=== PATIENT | male | born 1950 | race African-American/Black ===

== ENCOUNTER 2018-11-20 06:53 | Emergency (ER) | payer OTHER ==
[2018-11-20 07:02] VITALS: BP 138/75; PULSE 90; RESP 16; TEMP 99.6
[2018-11-20] MEDS ORDERED: ACET/COD 300 MG/30 MG STARTER PACK 6 TAB BTL PO STA (07:19)
[2018-11-20] MEDS ORDERED: PENICILLIN VK 500MG STARTER 4 TAB BTL PO STA (07:19)
--- NOTE | 2018-11-20 07:20 | ED ---
General Adult HPI - General Chief complaint: Fever Stated complaint: Fever, Dental Pain Time Seen by Provider: 11/20/18 07:08 Source: patient, family, RN notes reviewed Mode of arrival: wheelchair Limitations: no limitations - History of Present Illness Initial comments: Patient is a pleasant 68-year-old male presenting to the emergency Department with complaints of dental pain and fever. Onset of symptoms was last night. No history of similar symptoms previously. Patient does complain of discomfort right upper teeth. Patient feels like a swollen however has not noticed any swelling. Patient feels like he has a fever. Patient feels somewhat achy all over. No difficulty swallowing. No difficulty in breathing. - Related Data Home Medications Medication Instructions Recorded Confirmed Aspirin EC [Ecotrin] 325 mg PO DAILY PRN 11/20/18 11/20/18 Lisinopril [Zestril] 10 mg PO DAILY 11/20/18 11/20/18 Previous Rx's Medication Instructions Recorded Penicillin V Potassium [Pen Vee K] 500 mg PO QID #40 tablet 11/20/18 Allergies Allergy/AdvReac Type Severity Reaction Status Date / Time No Known Allergies Allergy Verified 11/20/18 07:25 Review of Systems ROS Statement: Those systems with pertinent positive or pertinent negative responses have been documented in the HPI. ROS Other: All systems not noted in ROS Statement are negative. Constitutional: Reports: fever, chills Eyes: Denies: eye pain ENT: Reports: dental pain Respiratory: Denies: dyspnea Cardiovascular: Denies: chest pain Gastrointestinal: Denies: abdominal pain Neurological: Denies: headache Past Medical History Past Medical History: Hypertension History of Any Multi-Drug Resistant Organisms: None Reported Additional Past Surgical History / Comment(s): neck, nasal Past Psychological History: No Psychological Hx Reported Smoking Status: Former smoker Past Alcohol Use History: None Reported Past Drug Use History: None Reported General Exam Limitations: no limitations General appearance: alert, in no apparent distress Head exam: Present: normocephalic Eye exam: Present: normal appearance ENT exam: Present: other (Right upper posterior premolar with some decay and tenderness. No visualized abscess formation.) Neck exam: Present: normal inspection Respiratory exam: Present: normal lung sounds bilaterally Cardiovascular Exam: Present: regular rate, normal rhythm GI/Abdominal exam: Present: soft. Absent: tenderness Extremities exam: Present: normal inspection Neurological exam: Present: alert, CN II-XII intact Psychiatric exam: Present: normal affect, normal mood Skin exam: Present: normal color Course Vital Signs 11/20/18 06:59 Temperature 99.6 F Pulse Rate 90 Respiratory 16 Rate Blood Pressure 138/75 O2 Sat by Pulse 96 Oximetry Disposition Clinical Impression: Dental abscess Disposition: HOME SELF-CARE Condition: Stable Instructions (If sedation given, give patient instructions): Dental Abscess (ED) Additional Instructions: Please follow-up with primary care physician and dentist in the next couple of days for recheck. Return for uncontrolled fevers, swelling, difficulty breathing or difficulty swallowing, worsening symptoms or other concerns. [id number] Tylenol or Motrin as needed. Prescriptions: Penicillin V Potassium [Pen Vee K] 500 mg PO QID #40 tablet Is patient prescribed a controlled substance at d/c from ED?: No Referrals: Skyla Ray MD [Primary Care Provider] - 1-2 days Time of Disposition: 07:23
== END 2018-11-20 07:50 | disposition home or self-care (01) ==
LOC: EC 06:53
DX: K04.7 Periapical abscess without sinus (principal); K02.9 Dental caries, unspecified; I10 Essential (primary) hypertension; Z87.891 Personal history of nicotine dependence; Z79.899 Other long term (current) drug therapy
CPT/HCPCS: 99283

== ENCOUNTER 2020-06-03 06:06 | Day surgery (SDC) | payer OTHER, MEDICARE ==
[2020-05-29 15:01] VITALS: BMI 25.1
[~2020-06-03 06:06] MED LIST: ACETAMINOPHEN TAB 500 MG TAB PO PRN; DEXAMETHASONE SOD PHOSPHATE 4 MG/ML 1 ML VIAL IV ONE; HEPARIN SODIUM,PORCINE/PF 5,000 UNIT/0.5 ML SYRINGE SQ PRN; LIDOCAINE 1% (10MG/ML) FOR IV START INTRADERMA PRN; MIDAZOLAM 2 MG/2 ML VIAL IV PRN; ONDANSETRON 4 MG/2 ML VIAL IVP ONE
[2020-06-03] MEDS: LACTATED RINGERS 1,000 ML IV SCH ×2 (06:40→11:32)
[2020-06-03] MEDS ORDERED: HYDROmorphone 0.5 MG/0.5 ML SYRINGE IVP PRN (07:00)
[2020-06-03] MEDS ORDERED: fentaNYL (PF) 50 MCG/ML 2 ML AMP IVP PRN (07:00)
[2020-06-03] MEDS ORDERED: hydrALAZINE HCL 20 MG/ML 1 ML VIAL ONE (07:44)
[2020-06-03] MEDS ORDERED: PROPOFOL 10 MG/ML 20 ML VIAL IV ONE (07:44)
[2020-06-03] MEDS ORDERED: KETOROLAC 15 MG/ML 1 ML VIAL ONE (07:44)
[2020-06-03] MEDS ORDERED: LIDOCAINE 1% INJ 10MG/ML (20 ML MDV) ONE (07:44)
[2020-06-03] MEDS ORDERED: NEOSTIGMINE 1 MG/ML 10 ML VIAL ONE (07:44)
[2020-06-03] MEDS ORDERED: KETAMINE 10 MG/ML 20 ML VIAL ONE (07:44)
[2020-06-03] MEDS ORDERED: SUCCINYLCHOLINE CHLORIDE 100 MG/5 ML SYR IV ONE (07:44)
[2020-06-03] MEDS ORDERED: GLYCOPYRROLATE 0.2 MG/ML 2 ML VIAL ONE (07:44)
[2020-06-03] MEDS ORDERED: fentaNYL (PF) 50 MCG/ML 2 ML AMP ONE (07:44)
[2020-06-03] MEDS ORDERED: ROPIVACAINE 5 MG/ML 30 ML VIAL ONE (07:44)
[2020-06-03] MEDS ORDERED: ROCURONIUM 10 MG/ML (5 ML VIAL) IV ONE (07:44)
[2020-06-03] MEDS ORDERED: BUPIVACAINE (PF) 0.25% 30 ML VIAL SQ ONE ×2 (08:04→08:07)
--- NOTE | 2020-06-03 08:12 | P.ANPRN ---
Procedure Note - Anesthesia - Nerve Block Performed Bilateral Erector Spinae Single Time Out Performed: Yes Date of Procedure: 06/03/20 Procedure Start Time: :12 Procedure Stop Time: : Location of Patient: PreOp Indication: Acute Post-Operative Pain, Requested by Surgeon Sedation Type: Sedate with meaningful contact maintained Preparation: Sterile Prep, Sterile Dressing Position: Sitting Catheter: None Needle Types: On-Q Needle Gauge: 21 Ultrasound used to visualize needle placement: Yes Ultrasound used to observe medication spread: Yes Injectate: Other (see comment) (Ropivacaine 0.25% 25 ml per side) Blood Aspirated: No Pain Paresthesia on Injection Noted: No Resistance on Injection: Normal Image Stored and Saved: Yes Events: Uneventful and Well Tolerated
[2020-06-03] MEDS ORDERED: LACTATED RINGERS 1,000 ML IV ONE ×2 (08:25)
--- NOTE | 2020-06-03 09:04 | P.GSHP ---
History of Present Illness H&P Date: 06/03/20 Chief Complaint: Right angle hernia This a 61 male who presents today for laparoscopic robotic-assisted pair of right inguinal hernia. Patient developed a tender mass right groin. The hernia is incarcerated. Past Medical History Past Medical History: Hypertension Additional Past Medical History / Comment(s): right inguinal hernia History of Any Multi-Drug Resistant Organisms: None Reported Additional Past Surgical History / Comment(s): cervical fusion & disc surgery, deviated septum, cataracts Past Anesthesia/Blood Transfusion Reactions: No Reported Reaction Past Psychological History: No Psychological Hx Reported Smoking Status: Former smoker Past Alcohol Use History: Occasional Additional Past Alcohol Use History / Comment(s): quit smoking 10-12 years ago, smoked 1ppd Past Drug Use History: None Reported - Past Family History Mother Family Medical History: No Reported History Medications and Allergies Home Medications Medication Instructions Recorded Confirmed Type Atorvastin (Unknown Dose) 20 mg PO DAILY 05/29/20 History Ibuprofen [Motrin Ib] 200 mg PO DIRECTED PRN 05/29/20 05/29/20 History lisinopriL [Zestril] 5 mg PO DAILY 05/29/20 06/03/20 History Allergies Allergy/AdvReac Type Severity Reaction Status Date / Time codeine AdvReac Unknown Unknown Verified 06/03/20 06:19 Surgical - Exam Vital Signs Temp Pulse Resp BP Pulse Ox 98.1 F 53 L 16 180/75 97 06/03/20 06:29 06/03/20 06:29 06/03/20 06:29 06/03/20 06:29 06/03/20 06:29 - General well developed, well nourished, no distress - Eyes PERRL - ENT normal pinna - Neck no masses - Respiratory normal expansion - Cardiovascular Rhythm: regular - Abdomen Abdomen: soft, non tender Hernia: inguinal (Large right inguinal hernia) Assessment and Plan Assessment: Right inguinal hernia. We'll perform laparoscopic robotic-assisted repair.
--- NOTE | 2020-06-03 09:06 | P.OP ---
Date of Procedure: 06/03/20 Preoperative Diagnosis: Right inguinal hernia Postoperative Diagnosis: Bilateral hernia Procedure(s) Performed: Laparoscopic robotic repair of bilateral hernia Laparoscopic excision of cord lipoma left Anesthesia: BEULAH Surgeon: Cresencio Donato Estimated Blood Loss (ml): 5 Pathology: other (Left cord lipoma) Condition: stable Disposition: PACU Description of Procedure: The patient's placed on the operating table in the supine position. The patient received general anesthesia. The patient's abdomen was prepped and draped in usual sterile fashion. The skin was anesthetized 1% local Xylocaine at the incision sites. Using an 11 blade a skin incision was made at the umbilicus. The fascia was grasped with a Izaiah and then the peritoneal cavity was entered with the Veress needle. Position of the Veress needle was confirmed with a positive drop test. After adequate insufflation a 5 mm trocar was placed into the peritoneal cavity. The Laparoscope was placed the peritoneal cavity. And a robotic 8 mm trocar was placed in the right lateral position and then another 8 mm robotic trochars placed in the left lateral position. The original 5 mm trocar was exchanged for a 12 mm trocar. The patient was placed in reverse Trendelenburg and then the patient was docked to the robot. Next the peritoneum over top of the right inguinal hernia was incised and then using blunt and sharp dissection and electrocautery the hernia sac was dissected free from the floor of the inguinal canal. The hernia sac was completely reduced into the peritoneal cavity. And then using the Pro hardness tester mesh the hernia was repaired. The peritoneum was then sutured with 20V lock suture. Next the peritoneum over top of the left inguinal hernia was incised and then using blunt and sharp dissection and electrocautery the hernia sac was dissected free from the floor of the inguinal canal. The cord lipoma was dissected free and sent to pathology The hernia sac was completely reduced into the peritoneal cavity. And then using the Pro hardness tester mesh the hernia was repaired. The perit oneum was then sutured with 20V lock suture. The patient was then undocked the robot. The needle was withdrawn from the peritoneal cavity. The umbilical trocar site was closed with 0 Ethibond suture. The skin was closed interrupted 3-0 Monocryl suture. Dermabond dressing was applied. Patient was sent to recovery in stable condition.
[2020-06-03 09:12] VITALS: TEMP 97.3
[2020-06-03 09:18] VITALS: RESP 16
[2020-06-03 11:20] VITALS: BP 145/71; PULSE 78
== END 2020-06-03 12:38 | disposition home or self-care (01) ==
LOC: OR 06:06
PROVIDERS: ATTEND Surgery
DX: K40.20 Bilateral inguinal hernia, without obstruction or gangrene, not specified as recurrent (principal); D17.1 Benign lipomatous neoplasm of skin and subcutaneous tissue of trunk; I10 Essential (primary) hypertension; Z79.899 Other long term (current) drug therapy; Z87.891 Personal history of nicotine dependence; Z88.5 Allergy status to narcotic agent
CPT/HCPCS: 49650; S2900; 64999; 76942; 88304

== ENCOUNTER 2023-02-18 06:20 | Emergency (ER) | payer BC, MEDICARE ==
--- NOTE | 2023-02-18 07:03 | XR ---
EXAMINATION TYPE: XR chest 2V DATE OF EXAM: 02/18/2023 6:57 AM CLINICAL INDICATION:Male, 72 years old with history of cough; [facility] COMPARISON: None TECHNIQUE: XR chest 2V Frontal and lateral views of the chest. FINDINGS: Lungs/Pleura: Left lower lung airspace opacities. There is no evidence of pleural effusion, focal con solidation, or pneumothorax. Pulmonary vascularity: Unremarkable. Heart/mediastinum: Cardiomediastinal silhouette is unremarkable. Musculoskeletal: No acute osseous pathology. Other findings: None IMPRESSION: Left lower lung airspace opacities correlate for pneumonia versus atelectasis.
--- NOTE | 2023-02-18 07:28 | ED ---
General Adult HPI - General Chief complaint: Upper Respiratory Infection Stated complaint: HUGO Time Seen by Provider: 02/18/23 06:33 Source: patient, RN notes reviewed Mode of arrival: ambulatory Limitations: no limitations - History of Present Illness Initial comments: 72-year-old male with no significant past medical history presents the emergency department with a chief complaint of cough. Patient reports cough, congestion, headache, generalized body aches for the last 3 days. He is unsure of whether his sputum has a color to it. He does report feeling feverish at times. He does report chest tightness secondary to his cough and coughing fits. He admits that this feels similar to the last time he had pneumonia. - Related Data Home Medications Medication Instructions Recorded Confirmed Atorvastin (Unknown Dose) 20 mg PO DAILY 05/29/20 Ibuprofen [Motrin Ib] 200 mg PO DIRECTED PRN 05/29/20 05/29/20 lisinopriL [Zestril] 5 mg PO DAILY 05/29/20 06/03/20 Previous Rx's Medication Instructions Recorded Acetaminophen Tab [Tylenol] 650 mg PO Q6H #30 tab 06/03/20 Docusate [Colace] 100 mg PO BID #20 capsule 06/03/20 Ibuprofen [Motrin] 600 mg PO Q6HR PRN #40 tab 06/03/20 oxyCODONE HCL [OxyIR] 5 mg PO Q6H PRN 3 Days #10 tab 06/03/20 Azithromycin [Zithromax Z Pack] 0 tab PO DIRECTED #6 tab 02/18/23 Allergies Allergy/AdvReac Type Severity Reaction Status Date / Time codeine AdvReac Unknown Unknown Verified 02/18/23 06:24 Review of Systems ROS Statement: Those systems with pertinent positive or pertinent negative responses have been documented in the HPI. ROS Other: All systems not noted in ROS Statement are negative. Past Medical History Past Medical History: Hypertension, Pneumonia Additional Past Medical History / Comment(s): right inguinal hernia History of Any Multi-Drug Resistant Organisms: None Reported Past Surgical History: Appendectomy Additional Past Surgical History / Comment(s): cervical fusion & disc surgery, deviated septum, cataracts Past Anesthesia/Blood Transfusion Reactions: No Reported Reaction Past Psychological History: No Psychological Hx Reported Smoking Status: Former smoker Past Alcohol Use History: Occasional Past Drug Use History: None Reported - Past Family History Mother Family Medical History: No Reported History General Exam - General Exam Comments Initial Comments: General: Alert, in no acute distress Head: atraumatic normocephalic. Eyes PERRL, EOMI intact, mucous membranes moist Respiratory: Lungs clear to auscultation bilaterally Cardiovascular: Heart rate regular rate and rhythm Abdominal: Soft without guarding or rebound Extremities: Normal inspection with full range of motion and normal capillary refill Neuroogic: alert and oriented 3, CN II-XII intact, able to ambulate with steady gait Skin: warm dry and intact with normal color Limitations: no limitations Course Vital Signs 02/18/23 02/18/23 06:22 07:01 Temperature 98.6 F 98.5 F Pulse Rate 78 67 Respiratory 18 16 Rate Blood Pressure 149/69 134/69 O2 Sat by Pulse 96 96 Oximetry Medical Decision Making - Medical Decision Making Was pt. sent in by a medical professional or institution (, PA, BIOLOGY TEACHER, urgent care, hospital, or half-way...) When possible be specific @ -[No] Did you speak to anyone other than the patient for history (EMS, parent, family, police, friend...)? What history was obtained from this source @ -[No] Did you review nursing and triage notes (agree or disagree)? Why? @ -[I reviewed and agree with nursing and triage notes] Were old charts reviewed (outside hosp., previous admission, EMS record, old EKG, old radiological studies, urgent care reports/EKG's, half-way records)? Report findings @ -[No old charts were reviewed] Differential Diagnosis (chest pain, altered mental status, abdominal pain women, abdominal pain men, vaginal bleeding, weakness, fever, dyspnea, syncope, headache, dizziness, GI bleed, back pain, seizure, CVA, palpatations, mental health, musculoskeletal)? @ -[not applicable] EKG interpreted by me (3pts min.). @ -[As above] X-rays interpreted by me (1pt min.). @ -Chest x-ray with left lower lobe infiltrate to suggest pneumonia CT interpreted by me (1pt min.). @ -[None done] U/S interpreted by me (1pt. min.). @ -[None done] What testing was considered but not performed or refused? (CT, X-rays, U/S, labs)? Why? @ -[None] What meds were considered but not given or refused? Why? @ -[None] Did you discuss the management of the patient with other professionals (professionals i.e. , PA, BIOLOGY TEACHER, lab, RT, psych nurse, clinical social work aide, store facility technician, teacher, targeting acquisition officer, welfare case worker)? Give summary @ -[No] Was smoking cessation discussed for >3mins.? @ -[No] Was critical care preformed (if so, how long)? @ -[No] Were there social determinants of health that impacted care today? How? (Homelessness, low income, unemployed, alcoholism, drug addiction, transporta tion, low edu. Level, literacy, decrease access to med. care, shelter, rehab)? @ -[No] Was there de-escalation of care discussed even if they declined (Discuss DNR or withdrawal of care, Hospice)? DNR status @ -[No] What co-morbidities impacted this encounter? (DM, HTN, Smoking, COPD, CAD, Cancer, CVA, ARF, Chemo, Hep., AIDS, mental health diagnosis, sleep apnea, morbid obesity)? @ -[None] Was patient admitted / discharged? Hospital course, mention meds given and route, prescriptions, significant lab abnormalities, going to OR and other pertinent info. @ Discharged. This is a pleasant 72-year-old male who presents the emergency department with cough. Patient with a history and physical exam performed. Patient is afebrile. Vital signs are stable. Patient oxygen saturation 98% on room air. Patient's chest x-ray reveals left lower lobe pneumonia. She'll be provided azithromycin and prednisone. 6 return parameters were discussed. Discharged in stable condition. Case is discussed with Dr. johnson ED attending who agrees with plan of care Undiagnosed new problem with uncertain prognosis? @ -[No] Drug Therapy requiring intensive monitoring for toxicity (Heparin, Nitro, Insulin, Cardizem)? @ -[No] Were any procedures done? @ -[No] Diagnosis/symptom? @ -Pneumonia - Cough Acute, or Chronic, or Acute on Chronic? @ -Acute ] Uncomplicated (without systemic symptoms) or Complicated (systemic symptoms)? @ -Uncomplicated Side effects of treatment? @ -[No] Exacerbation, Progression, or Severe Exacerbation? @ -[No] Poses a threat to life or bodily function? How? (Chest pain, [place], [place], pneumonia, PE, COPD, DKA, ARF, appy, cholecystitis, CVA, Diverticulitis, Homicidal, Suicidal, threat to staff... and all critical care pts) @ -Low likelihood - Lab Data Lab Results 02/18/23 Range/Units 06:45 Influenza Type A (PCR) Not Detected (Not Detectd) Influenza Type B (PCR) Not Detected (Not Detectd) RSV (PCR) Not Detected (Not Detectd) SARS-CoV-2 (PCR) Not Detected (Not Detectd) Disposition Clinical Impression: Community acquired pneumonia, Cough Disposition: HOME SELF-CARE Condition: Stable Instructions (If sedation given, give patient instructions): Community Acquired Pneumonia (ED) Additional Instructions: Please take Antibiotics as prescribed Can take tylenol or motrin for fever control Please return to the nearest emergency department if worsening cough, shortness of breath, or high fever develop Prescriptions: Azithromycin [Zithromax Z Pack] 0 tab PO DIRECTED #6 tab Is patient prescribed a controlled substance at d/c from ED?: No Referrals: Skyla Ray MD [Primary Care Provider] - 1-2 days Time of Disposition: 08:05
[2023-02-18 07:36] VITALS: BP 134/69; PULSE 67; RESP 16; TEMP 98.5
== END 2023-02-18 08:15 | disposition home or self-care (01) ==
LOC: EC 06:20
DX: J18.9 Pneumonia, unspecified organism (principal); I10 Essential (primary) hypertension; Z79.899 Other long term (current) drug therapy; Z87.891 Personal history of nicotine dependence; Z20.822 Contact with and (suspected) exposure to COVID-19; Z88.5 Allergy status to narcotic agent
CPT/HCPCS: 71046; 87636; 99285

== ENCOUNTER 2024-02-25 08:50 | Inpatient (IN) | payer BC, MEDICARE ==
--- NOTE | 2024-02-25 09:52 | ED ---
General Adult HPI - General Chief complaint: GI Bleed Stated complaint: Rectal Bleeding Time Seen by Provider: 02/25/24 09:05 Source: patient, family, RN notes reviewed, old records reviewed Mode of arrival: ambulatory Limitations: no limitations - History of Present Illness Initial comments: This is a 73-year-old male who presents to the emergency department complaining of rectal bleeding. Patient states that started yesterday and continued through today. Patient states is very dark in color. Patient states he is not on any blood thinners. Patient states he had this many years ago but has not happened since. Patient denies any hemorrhoid history. Patient denies any abdominal pain. Patient Nuys any rectal pain. Patient states she just has the urge to go about every 2-3 hours and it is dark red blood. Patient denies any difficulty breathing shortness of breath. Patient denies any chest pain. Patient denies any back pain. - Related Data Home Medications Medication Instructions Recorded Confirmed Atorvastin (Unknown Dose) 20 mg PO DAILY 05/29/20 Ibuprofen [Motrin Ib] 200 mg PO DIRECTED PRN 05/29/20 05/29/20 lisinopriL [Zestril] 5 mg PO DAILY 05/29/20 06/03/20 Previous Rx's Medication Instructions Recorded Acetaminophen Tab [Tylenol] 650 mg PO Q6H #30 tab 06/03/20 Docusate [Colace] 100 mg PO BID #20 capsule 06/03/20 Ibuprofen [Motrin] 600 mg PO Q6HR PRN #40 tab 06/03/20 oxyCODONE HCL [OxyIR] 5 mg PO Q6H PRN 3 Days #10 tab 06/03/20 Azithromycin [Zithromax Z Pack] 0 tab PO DIRECTED #6 tab 02/18/23 Allergies Allergy/AdvReac Type Severity Reaction Status Date / Time codeine AdvReac Unknown Unknown Verified 02/25/24 08:58 Review of Systems ROS Statement: Those systems with pertinent positive or pertinent negative responses have been documented in the HPI. ROS Other: All systems not noted in ROS Statement are negative. Past Medical History Past Medical History: Hyperlipidemia, Hypertension, Pneumonia Additional Past Medical History / Comment(s): right inguinal hernia History of Any Multi-Drug Resistant Organisms: None Reported Past Surgical History: Appendectomy Additional Past Surgical History / Comment(s): cervical fusion & disc surgery, deviated septum, cataracts Past Anesthesia/Blood Transfusion Reactions: No Reported Reaction Past Psychological History: No Psychological Hx Reported Smoking Status: Heavy tobacco smoker Past Alcohol Use History: Daily Past Drug Use History: None Reported - Past Family History Mother Family Medical History: No Reported History General Exam - General Exam Comments Initial Comments: GENERAL: Patient is well-developed and well-nourished. Patient is nontoxic and well- hydrated and is in no acute distress. ENT: Neck is soft and supple. No significant lymphadenopathy is noted. Oropharynx is clear. Moist mucous membranes. Neck has full range of motion without eliciting any pain. EYES: The sclera were anicteric and conjunctiva were pink and moist. Extraocular movements were intact and pupils were equal round and reactive to light. Eyelids were unremarkable. PULMONARY: Unlabored respirations. Good breath sounds bilaterally. No audible rales rhonchi or wheezing was noted. CARDIOVASCULAR: There is a regular rate and rhythm without any murmurs gallops or rubs. ABDOMEN: Soft and nontender with normal bowel sounds. No palpable organomegaly was noted. There is no palpable pulsatile mass. RECTAL: Patient's rectal exam showed no obvious sites of bleeding no hemorrhoids. No fissure. SKIN: Skin is clear with no lesions or rashes and otherwise unremarkable. NEUROLOGIC: Patient is alert and oriented x3. Cranial nerves II through XII are grossly intact. Motor and sensory are also intact. Normal speech, volume and content. Symmetrical smile. Cerebellar exam grossly intact. MUSCULOSKELETAL: Normal extremities with adequate strength and full range of motion. LYMPHATICS: No significant lymphadenopathy is noted PSYCHIATRIC: Normal psychiatric evaluation. Limitations: no limitations Course Vital Signs 02/25/24 02/25/24 08:54 10:55 Temperature 98 F Pulse Rate 82 67 Respiratory 18 18 Rate Blood Pressure 118/63 131/69 O2 Sat by Pulse 97 99 Oximetry Medical Decision Making - Medical Decision Making Was pt. sent in by a medical professional or institution (, PA, [facility], urgent care, hospital, or [facility]...) When possible be specific @ -No Did you speak to anyone other than the patient for history (EMS, parent, family, police, friend...)? What history was obtained from this source @ -No Did you review nursing and triage notes (agree or disagree)? Why? @ -I reviewed and agree with nursing and triage notes Were old charts reviewed (outside hosp., previous admission, EMS record, old EKG, old radiological studies, urgent care reports/EKG's, [facility] records)? Report findings @ -No old charts were reviewed Differential Diagnosis? @ -Differential GI Bleed: Esophageal varices, aortoenteric fistula, Viridiana-Sanz, gastritis, peptic ulcer disease, diverticulosis, inflammatory bowel disease, hemorrhoids, fissure, colitis, malignancy, Meckel's diverticulum, this is not meant to be an all-in clusive list. EKG interpreted by me (3pts min.). @ -As above X-rays interpreted by me (1pt min.). @ -None done CT interpreted by me (1pt min.). @ -None done U/S interpreted by me (1pt. min.). @ -None done What testing was considered but not performed or refused? (CT, X-rays, U/S, labs)? Why? @ -None What meds were considered but not given or refused? Why? @ -None Did you discuss the management of the patient with other professionals (professionals i.e. , PA, [facility], lab, RT, psych nurse, social security specialist, entertainment lawyer, teacher, science and operations officer, case repairer)? Give summary @ -[facility] admit the patient wrote admitting orders Was smoking cessation discussed for >3mins.? @ -No Was critical care preformed (if so, how long)? @ -No Were there social determinants of health that impacted care today? How? (Homelessness, low income, unemployed, alcoholism, drug addiction, transportation, low edu. Level, literacy, decrease access to med. care, detention, rehab)? @ -No Was there de-escalation of care discussed even if they declined (Discuss DNR or withdrawal of care, Hospice)? DNR status @ -No What co-morbidities impacted this encounter? (DM, HTN, Smoking, COPD, CAD, Cancer, CVA, ARF, Chemo, Hep., AIDS, mental health diagnosis, sleep apnea, morbid obesity)? @ -None Was patient admitted / discharged? Hospital course, mention meds given and route, prescriptions, significant lab abnormalities, going to OR and other pertinent info. @ -Patient's hemoglobin was 11.4. Patient continued to have rectal bleeding. Patient was in no distress vitals are stable hemoglobin at this time was stable. I spoke with [facility] hospitalist they agreed admit the patient admit the patient I consulted Dr. Chan Undiagnosed new problem with uncertain prognosis? @ -No Drug Therapy requiring intensive monitoring for toxicity (Heparin, Nitro, Insulin, Cardizem)? @ -No Were any procedures done? @ -No Diagnosis/symptom? @ -GI bleed Acute, or Chronic, or Acute on Chronic? @ -Acute Uncomplicated (without systemic symptoms) or Complicated (systemic symptoms)? @ -Complicated Side effects of treatment? @ -No Exacerbation, Progression, or Severe Exacerbation? @ -No Poses a threat to life or bodily function? How? (Chest pain, USA, VT, pneumonia, PE, COPD, DKA, ARF, appy, cholecystitis, CVA, Diverticulitis, Homicidal, Suicidal, threat to staff... and all critical care pts) @ -Yes this can lead to a very low hemoglobin hypoxia and endorgan dysfunction - Lab Data Result diagrams: 02/25/24 09:50 02/25/24 10:05 Lab Results 02/25/24 02/25/24 02/25/24 Range/Units 09:50 09:50 09:55 WBC 12.0 H (3.8-10.6) k/uL RBC 3.98 L (4.30-5.90) m/uL Hgb 11.4 L (13.0-17.5) gm/dL Hct 34.5 L (39.0-53.0) % MCV 86.7 (80.0-100.0) fL MCH 28.6 (25.0-35.0) pg MCHC 33.0 (31.0-37.0) g/dL RDW 12.5 (11.5-15.5) % Plt Count 334 (150-450) k/uL MPV 8.1 Neutrophils % 76 % Lymphocytes % 17 % Monocytes % 4 % Eosinophils % 2 % Basophils % 0 % Neutrophils # 9.2 H (1.3-7.7) k/uL Lymphocytes # 2.0 (1.0-4.8) k/uL Monocytes # 0.5 (0-1.0) k/uL Eosinophils # 0.2 (0-0.7) k/uL Basophils # 0.1 (0-0.2) k/uL PT (10.0-12.5) sec INR (<1.2) APTT (22.0-30.0) sec Sodium (137-145) mmol/L Potassium (3.5-5.1) mmol/L Chloride (98-107) mmol/L Carbon Dioxide (22-30) mmol/L Anion Gap mmol/L BUN (9-20) mg/dL Creatinine (0.66-1.25) mg/dL Est GFR (CKD-EPI)AfAm (>60 ml/min/1.73 sqM) Est GFR (CKD-EPI)NonAf (>60 ml/min/1.73 sqM) Glucose (74-99) mg/dL Calcium (8.4-10.2) mg/dL Total Bilirubin (0.2-1.3) mg/dL AST (17-59) U/L ALT (4-49) U/L Alkaline Phosphatase (38-126) U/L Troponin I (0.000-0.034) ng/mL Total Protein (6.3-8.2) g/dL Albumin (3.5-5.0) g/dL Blood Type O Positive Blood Type Confirm O Positive Blood Type Recheck No Previous Record Bld Type Recheck Status CABO Indicated Antibody Screen NEGATIVE Spec Expiration Date 02/28/2024 - 234902/25/24 02/25/24 02/25/24 Range/Units 10:05 10:05 10:05 WBC (3.8-10.6) k/uL RBC (4.30-5.90) m/uL Hgb (13.0-17.5) gm/dL Hct (39.0-53.0) % MCV (80.0-100.0) fL MCH (25.0-35.0) pg MCHC (31.0-37.0) g/dL RDW (11.5-15.5) % Plt Count (150-450) k/uL MPV Neutrophils % % Lymphocytes % % Monocytes % % Eosinophils % % Basophils % % Neutrophils # (1.3-7.7) k/uL Lymphocytes # (1.0-4.8) k/uL Monocytes # (0-1.0) k/uL Eosinophils # (0-0.7) k/uL Basophils # (0-0.2) k/uL PT 11.0 (10.0-12.5) sec INR 1.0 (<1.2) APTT 24.4 (22.0-30.0) sec Sodium 134 L (137-145) mmol/L Potassium 4.0 (3.5-5.1) mmol/L Chloride 99 (98-107) mmol/L Carbon Dioxide 25 (22-30) mmol/L Anion Gap 10 mmol/L BUN 18 (9-20) mg/dL Creatinine 0.95 (0.66-1.25) mg/dL Est GFR (CKD-EPI)AfAm >90 (>60 ml/min/1.73 sqM) Est GFR (CKD-EPI)NonAf 80 (>60 ml/min/1.73 sqM) Glucose 98 (74-99) mg/dL Calcium 9.2 (8.4-10.2) mg/dL Total Bilirubin 0.7 (0.2-1.3) mg/dL AST 26 (17-59) U/L ALT 18 (4-49) U/L Alkaline Phosphatase 43 (38-126) U/L Troponin I 0.012 (0.000-0.034) ng/mL Total Protein 6.8 (6.3-8.2) g/dL Albumin 4.3 (3.5-5.0) g/dL Blood Type Blood Type Confirm Blood Type Recheck Bld Type Recheck Status Antibody Screen Spec Expiration Date Disposition Clinical Impression: Gastrointestinal hemorrhage Disposition: ADMITTED IP TO THIS [facility] Referrals: Kenney Garcia MD [Primary Care Provider] - 1-2 days Time of Disposition: 11:47
[2024-02-25] MEDS: SODIUM CHLORIDE 0.9% 500 ML 500 ML IV STA (09:56)
[2024-02-25 10:10] LABS: Basophils # (A) 0.1 k/uL (0-0.2); Basophils % (A) 0 %; Eosinophils # (A) 0.2 k/uL (0-0.7); Eosinophils % (A) 2 %; HCT 34.5 % (39.0-53.0); HGB 11.4 gm/dL (13.0-17.5); Lymphocytes % (A) 17 %; MCH 28.6 pg (25.0-35.0); MCV 86.7 fL (80.0-100.0); Mean Platelet Volume 8.1; Monocytes # (A) 0.5 k/uL (0-1.0); Monocytes % (A) 4 %; Neutrophils # (A) 9.2 k/uL (1.3-7.7); Neutrophils % (A) 76 %; Platelet Count 334 k/uL (150-450); RBC 3.98 m/uL (4.30-5.90); RDW 12.5 % (11.5-15.5)
[2024-02-25 10:19] LABS: Partial Thromboplastin Time 24.4 sec (22.0-30.0)
[2024-02-25 10:30] LABS: ALT 18 U/L (4-49); AST 26 U/L (17-59); African American GFR (CKD) >90 (>60 ml/min/1.73 sqM); Albumin 4.3 g/dL (3.5-5.0); Alkaline Phosphatase 43 U/L (38-126); Anion Gap 10 mmol/L; Blood Urea Nitrogen 18 mg/dL (9-20); Calcium 9.2 mg/dL (8.4-10.2); Carbon Dioxide 25 mmol/L (22-30); Chloride 99 mmol/L (98-107); Glucose 98 mg/dL (74-99); Non-African American GFR(CKD) 80 (>60 ml/min/1.73 sqM); Sodium 134 mmol/L (137-145); Total Bilirubin 0.7 mg/dL (0.2-1.3); Total Protein 6.8 g/dL (6.3-8.2)
[2024-02-25] MEDS: SODIUM CHLORIDE 0.9% 1,000 ML IV ONE (11:56)
[2024-02-25] MEDS ORDERED: NALOXONE 0.4 MG/ML 1 ML VIAL IV PRN (13:20)
[2024-02-25] MEDS ORDERED: MELATONIN 3 MG TABLET PO PRN (13:20)
[2024-02-25] MEDS ORDERED: ACETAMINOPHEN TAB 325 MG TAB PO PRN (13:20)
[2024-02-25] MEDS ORDERED: ONDANSETRON 4 MG/2 ML VIAL IVP PRN (13:20)
[2024-02-25] MEDS: SODIUM CHLORIDE 0.9% 1,000 ML IV SCH (13:25)
--- NOTE | 2024-02-25 13:26 | P.HPIM ---
History of Present Illness H&P Date: 02/25/24 History of present illness; patient is a 73-year-old gentleman with past medical his significant for hypertension, hyperlipidemia who presented to the ER because of dark stools. Patient stated he was all right yesterday afternoon when he started having dark-colored stools, there was no complaint of abdominal pain, no complaint of nausea or vomiting. Patient had multiple episodes of dark stools. There was no complaint of any hematemesis. Patient denies any history of using blood thinner but patient homeless does include taking regular Motrin. There was no complaint of any chest pain or shortness of breath. There is no complaint of fever or chills. Because of dark-colored stools, patient came to the ER. Initial lab work done in the ER showed WBC 12, hemoglobin 11.4, platelet count 324, sodium 134, potassium 4, BUN 18, creatinine 0.95, glucose 98, AST 20, ALT 18, troponin 0.012 Patient admitted to internal medicine service REVIEW OF SYSTEMS: CONSTITUTIONAL: No fever, no malaise, no fatigue. HEENT: No recent visual problems or hearing problems. Denied any sore throat. CARDIOVASCULAR: No chest pain, orthopnea, PND, no palpitations, no syncope. PULMONARY: No shortness of breath, no cough, no hemoptysis. GASTROINTESTINAL: As mentioned above NEUROLOGICAL: No headaches, no weakness, no numbness. HEMATOLOGICAL: Denies any bleeding or petechiae. GENITOURINARY: Denies any burning micturition, frequency, or urgency. MUSCULOSKELETAL/RHEUMATOLOGICAL: Denies any joint pain, swelling, or any muscle pain. ENDOCRINE: Denies any polyuria or polydipsia. The rest of the 14-point review of systems is negative. PHYSICAL EXAMINATION: GENERAL: The patient is alert and oriented x3, not in any acute distress. Well developed, well nourished. HEENT: Pupils are round and equally reacting to light. EOMI. No scleral icterus. No conjunctival pallor. Normocephalic, atraumatic. No pharyngeal erythema. No thyromegaly. CARDIOVASCULAR: S1 and S2 present. No murmurs, rubs, or gallops. PULMONARY: Chest is clear to auscultation, no wheezing or crackles. ABDOMEN: Soft, nontender, nondistended, normoactive bowel sounds. No palpable organomegaly. MUSCULOSKELETAL: No joint swelling or deformity. EXTREMITIES: No cyanosis, clubbing, or pedal edema. NEUROLOGICAL: Gross neurological examination did not reveal any focal deficits. SKIN: No rashes. Assessment and plan GI bleed Hyperlipidemia Hypertension Monitor vital signs Monitor CBC Monitor CMP Ordered anemia workup Ordered FOBT Avoid NSAIDs Start IV Protonix 40 mg twice a day Start IV antiemetics start IV fluids Start patient on clear liquid diet, n.p.o. after midnight GI coverage starts from tomorrow, patient will be evaluated GI Labs and medication were reviewed.. Continue same treatment. Continue with symptomatic treatment. Resume home medication. Monitor labs and vitals. DVT and GI prophylaxis. Further recommendations as per clinical course of the patient Dictation was produced using [employer] dictation software. please excuse any grammatical, word or spelling errors. Past Medical History Past Medical History: Hyperlipidemia, Hypertension, Pneumonia Additional Past Medical History / Comment(s): right inguinal hernia History of Any Multi-Drug Resistant Organisms: None Reported Past Surgical History: Appendectomy Additional Past Surgical History / Comment(s): cervical fusion & disc surgery, deviated septum, cataracts Past Anesthesia/Blood Transfusion Reactions: No Reported Reaction Past Psychological History: No Psychological Hx Reported Smoking Status: Heavy tobacco smoker Past Alcohol Use History: Daily Past Drug Use History: None Reported - Past Family History Mother Family Medical History: No Reported History Medications and Allergies Home Medications Medication Instructions Recorded Confirmed Type Atorvastin (Unknown Dose) 20 mg PO DAILY 05/29/20 History Ibuprofen [Motrin Ib] 200 mg PO DIRECTED PRN 05/29/20 05/29/20 History lisinopriL [Zestril] 5 mg PO DAILY 05/29/20 06/03/20 History Acetaminophen Tab [Tylenol] 650 mg PO Q6H #30 tab 06/03/20 Rx Docusate [Colace] 100 mg PO BID #20 capsule 06/03/20 Rx Ibuprofen [Motrin] 600 mg PO Q6HR PRN #40 tab 06/03/20 Rx oxyCODONE HCL [OxyIR] 5 mg PO Q6H PRN 3 Days #10 tab 06/03/20 Rx Azithromycin [Zithromax Z Pack] 0 tab PO DIRECTED #6 tab 02/18/23 Rx Allergies Allergy/AdvReac Type Severity Reaction Status Date / Time codeine AdvReac Unknown Unknown Verified 02/25/24 08:58 Physical Exam Vitals: Vital Signs Temp Pulse Resp BP Pulse Ox 02/25/24 10:55 67 18 131/69 99 02/25/24 08:54 98 F 82 18 118/63 97 Intake and Output 02/24/24 02/25/24 02/25/24 22:59 06:59 14:59 Other: Weight 77.111 kg Results CBC & Chem 7: 02/25/24 09:50 02/25/24 10:05 Labs: Abnormal Lab Results - Last 24 Hours (Table) 02/25/24 02/25/24 Range/Units 09:50 10:05 WBC 12.0 H (3.8-10.6) k/uL RBC 3.98 L (4.30-5.90) m/uL Hgb 11.4 L (13.0-17.5) gm/dL Hct 34.5 L (39.0-53.0) % Neutrophils # 9.2 H (1.3-7.7) k/uL Sodium 134 L (137-145) mmol/L
[2024-02-25] MEDS: PANTOPRAZOLE 40 MG/10 ML VIAL IVP SCH (13:48)
[2024-02-25 14:53] LABS: Basophils # (A) 0.1 k/uL (0-0.2); Basophils % (A) 1 %; Eosinophils # (A) 0.2 k/uL (0-0.7); Eosinophils % (A) 2 %; HCT 30.2 % (39.0-53.0); Lymphocytes # (A) 2.3 k/uL (1.0-4.8); Lymphocytes % (A) 27 %; MCH 28.9 pg (25.0-35.0); MCHC 33.2 g/dL (31.0-37.0); MCV 87.2 fL (80.0-100.0); Mean Platelet Volume 7.4; Monocytes # (A) 0.4 k/uL (0-1.0); Monocytes % (A) 5 %; Neutrophils # (A) 5.5 k/uL (1.3-7.7); Neutrophils % (A) 64 %; Platelet Count 262 k/uL (150-450); RBC 3.46 m/uL (4.30-5.90); RDW 12.4 % (11.5-15.5); WBC 8.5 k/uL (3.8-10.6)
[2024-02-25 15:12] LABS: Prothrombin Time 11.1 sec (10.0-12.5)
[2024-02-25 18:20] LABS: Basophils # (A) 0.1 k/uL (0-0.2); Basophils % (A) 1 %; Eosinophils # (A) 0.3 k/uL (0-0.7); Eosinophils % (A) 3 %; HCT 33.2 % (39.0-53.0); HGB 10.7 gm/dL (13.0-17.5); Hypochromasia Slight; Lymphocytes # (A) 2.6 k/uL (1.0-4.8); Lymphocytes % (A) 28 %; MCH 28.5 pg (25.0-35.0); MCHC 32.2 g/dL (31.0-37.0); MCV 88.5 fL (80.0-100.0); Mean Platelet Volume 8.1; Monocytes # (A) 0.4 k/uL (0-1.0); Monocytes % (A) 4 %; Neutrophils # (A) 6.2 k/uL (1.3-7.7); Neutrophils % (A) 65 %; Platelet Count 319 k/uL (150-450); RBC 3.75 m/uL (4.30-5.90); RDW 12.6 % (11.5-15.5); WBC 9.6 k/uL (3.8-10.6)
[2024-02-26 09:01] LABS: ALT 14 U/L (10-49); AST 18 U/L (14-35); Albumin 3.5 g/dL (3.8-4.9); Albumin/Globulin Ratio 1.94 Ratio (1.60-3.17); Alkaline Phosphatase 35 U/L (41-126); BUN/Creat Ratio 17.67 Ratio (12.00-20.00); Blood Urea Nitrogen 15.9 mg/dL (9.0-27.0); Calcium 8.3 mg/dL (8.7-10.3); Carbon Dioxide 24.6 mmol/L (21.6-31.8); Chloride 107 mmol/L (96-109); Globulin 1.8 g/dL (1.6-3.3); Glucose 94 mg/dL (70-110); Iron 17 UG/DL (65-175); Potassium 4.3 mmol/L (3.5-5.5); Sodium 140 mmol/L (135-145); Total Bilirubin 0.5 mg/dL (0.3-1.2); Total Iron Binding Capacity 395 UG/DL (228-460); Total Protein 5.3 g/dL (6.2-8.2)
[2024-02-26 09:12] LABS: Basophils # (A) 0.03 X 10*3/uL (0.00-0.10); Basophils % (A) 0.5 %; Eosinophils # (A) 0.18 X 10*3/uL (0.04-0.35); Eosinophils % (A) 3.1 %; HCT 29.8 % (39.6-50.0); HGB 9.5 g/dL (13.0-17.0); Lymphocytes # (A) 1.57 X 10*3/uL (0.90-5.00); Lymphocytes % (A) 27.1 %; MCH 27.7 pg (27.0-32.0); MCHC 31.9 g/dL (32.0-37.0); MCV 86.9 FL (80.0-97.0); Mean Platelet Volume 10.8 FL (9.5-12.2); Monocytes # (A) 0.43 X 10*3/uL (0.20-1.00); Monocytes % (A) 7.4 %; NRBC Per 100 WBC 0 X 10*3/uL (0.00-0.01); Neutrophils # (A) 3.57 X 10*3/uL (1.80-7.70); Neutrophils % (A) 61.6 %; Platelet Count 295 X 10*3/uL (140-440); RBC 3.43 X 10*6/uL (4.40-5.60); RDW 12.6 % (11.5-14.5)
[2024-02-26 09:50] LABS: Ferritin 14.2 ng/mL (22.0-322.0)
[2024-02-26] MEDS: SODIUM FERRIC GLUCONAT-SUCROSE 125 MG in SODIUM CHLORIDE 0.9% 100 ML IVPB ONE (12:41)
[2024-02-26] MEDS: PEG 3350 (236 GM/BTL) + LYTES 4,000 ML BOTTLE PO ONE (14:44)
--- NOTE | 2024-02-26 15:24 | P.CONS ---
History of Present Illness - Reason for Consult Consult date: 02/26/24 GI bleed Requesting physician: Eliot Britton - Chief Complaint Rectal bleeding - History of Present Illness This is a pleasant 73-year-old male who presented to the emergency department yesterday with complaints of rectal bleeding. Patient states he started having bleeding from the rectum on Monday. States that he had up to 7 episodes of bleeding which she reports is all dark. He denies any abdominal pain associated with the bleeding. Denies any previous history of GI bleed. Reports the stool as black and sticky. Denies any history of upper GI bleed. States he did have an EGD many years ago. Believes he had a colonoscopy 4 to 5 years ago and states it was normal. He denies any anticoagulation and states he uses ibuprofen maybe 1 day a week. Admitting hemoglobin 11.4 with a repeat today of 9.5. He states he had 4 episodes of bloody bowel movements today. Again denies any abdominal pain, nausea or vomiting. Review of Systems REVIEW OF SYSTEMS: CARDIOPULMONARY: No chest pain or shortness of breath. Gastrointestinal: Abdominal pain. No nausea or vomiting. No hematemesis, coffee-ground emesis. Patient reports dark/black stool/blood. GENITOURINARY: No dysuria or hematuria. MUSCULOSKELETAL: Reports normal range of motion., Joint pain. SKIN: No rashes. No jaundice. ENDOCRINE: No chills, fevers. No excessive weight gain or loss. No polydipsia or polyuria. PSYCHIATRIC: Unremarkable. NEUROLOGY: No change in mental status. Denies dizziness, headache. ENT: Vision unremarkable. CONSTITUTIONAL: No recent weight loss. No fever, chills, night sweats. Past Medical History Past Medical History: Hyperlipidemia, Hypertension, Pneumonia Additional Past Medical History / Comment(s): right inguinal hernia History of Any Multi-Drug Resistant Organisms: None Reported Past Surgical History: Appendectomy, Hernia Repair Additional Past Surgical History / Comment(s): cervical fusion & disc surgery, deviated septum, cataracts Past Anesthesia/Blood Transfusion Reactions: No Reported Reaction Past Psychological History: No Psychological Hx Reported Smoking Status: Former smoker Past Alcohol Use History: Daily Additional Past Alcohol Use History / Comment(s): quit smoking 10-12 years ago, smoked 1ppd Past Drug Use History: None Reported - Past Family History Mother Family Medical History: No Reported History Medications and Allergies Home Medications Medication Instructions Recorded Confirmed Type Atorvastatin [Lipitor] 20 mg PO DAILY 02/25/24 02/25/24 History Lisinopril-Hctz 20-12.5 mg 1 tab PO DAILY 02/25/24 02/25/24 History [Zestoretic 20-12.5] Allergies Allergy/AdvReac Type Severity Reaction Status Date / Time codeine AdvReac Unknown Rapid Verified 02/25/24 14:44 Heart Rate Physical Exam Vitals: Vital Signs Temp Pulse Pulse Resp BP BP BP 02/26/24 13:36 97.5 F L 81 16 138/68 02/26/24 07:34 98.0 F 59 L 16 150/68 02/26/24 02:15 117/65 02/26/24 01:50 98 F 60 16 97/56 02/25/24 19:50 98.1 F 65 16 105/63 02/25/24 19:30 65 16 02/25/24 17:44 97.5 F L 69 16 153/67 02/25/24 17:03 97.6 F 68 18 144/81 Pulse Ox 02/26/24 13:36 98 02/26/24 07:34 97 02/26/24 02:15 02/26/24 01:50 97 02/25/24 19:50 96 02/25/24 19:30 02/25/24 17:44 99 02/25/24 17:03 98 Intake and Output 02/25/24 02/26/24 02/26/24 22:59 06:59 14:59 Intake Total 1120 Balance 1120 Intake: Oral 1120 Other: Voiding Method Toilet # Voids 3 Weight 77.111 kg General appearance: The patient is alert, oriented, appears in no acute distress. HET: Head is normocephalic and atraumatic. Conjunctiva pink. Sclera anicteric. Neck: Supple without lymphadenopathy. Trachea midline. Heart: Regular. Lungs: Equal expansion, normal respiratory effort. Abdomen: Soft, nontender, nondistended. Skin: No rashes. No jaundice. Extremities: Normal skin color and turgor. No pedal edema. Neurological: No focal deficits. Alert and oriented x3. Results CBC & Chem 7: 02/26/24 05:39 02/26/24 05:39 Labs: Abnormal Lab Results - Last 24 Hours (Table) 02/25/24 02/26/24 02/26/24 Range/Units 17:29 05:39 05:39 RBC 3.75 L 3.43 L (4.30-5.90) m/uL Hgb 10.7 L 9.5 L (13.0-17.5) gm/dL Hct 33.2 L 29.8 L (39.0-53.0) % MCHC 31.9 L (32.0-37.0) g/dL Calcium 8.3 L (8.7-10.3) mg/dL Iron 17 L (65-175) UG/DL % Saturation 4.30 L (15.00-50.00) Ferritin 14.2 L (22.0-322.0) ng/mL Alkaline Phosphatase 35 L (41-126) U/L Total Protein 5.3 L (6.2-8.2) g/dL Albumin 3.5 L (3.8-4.9) g/dL Assessment and Plan (1) GI bleed Narrative/Plan: 73-year-old male with no prior history of GI bleed presents with dark/black stools since Monday. No anticoagulation no regular NSAID use no history of peptic ulcer disease. Unclear etiology. Need to consider source of possible upper GI bleed however has not had colonoscopy in 4 to 5 years. He has a normocytic normochromic anemia. Will plan for further investigation with EGD and colonoscopy. Continue Protonix 40 mg twice daily. CBC every 6 hours, transfuse for hemoglobin less than 7. Current Visit: Yes Status: Acute Code(s): K92.2 - GASTROINTESTINAL HEMORRHAGE, UNSPECIFIED SNOMED Code(s): 77229222 Plan: 1. Clear liquid diet, n.p.o. after midnight 2. CBC every 6 hours 3. Transfuse for hemoglobin less than 7 4. Iron studies ordered 5. Recommend parental iron 6. Plan for EGD and colonoscopy tomorrow Thank you for this consultation, we will continue to follow. Dr. Michael Villafuerte I agree with the dictator's note, documented as a scribe by Stephanie Weiner.
[2024-02-26 17:07] LABS: HCT 31.1 % (39.0-53.0); HGB 10.2 gm/dL (13.0-17.5); MCH 28.4 pg (25.0-35.0); MCHC 32.6 g/dL (31.0-37.0); MCV 87.1 fL (80.0-100.0); Mean Platelet Volume 7.7; Platelet Count 332 k/uL (150-450); RBC 3.57 m/uL (4.30-5.90); RDW 12.8 % (11.5-15.5); WBC 6.9 k/uL (3.8-10.6)
--- NOTE | 2024-02-26 20:00 | P.PN ---
Progress Note - Text Progress Note Date: 02/26/24 History of present illness; patient is a 73-year-old gentleman with past medical his significant for hypertension, hyperlipidemia who presented to the ER because of dark stools. Patient stated he was all right yesterday afternoon when he started having dark-colored stools, there was no complaint of abdominal pain, no complaint of nausea or vomiting. Patient had multiple episodes of dark stools. There was no complaint of any hematemesis. Patient denies any history of using blood thinner but patient homeless does include taking regular Motrin. There was no complaint of any chest pain or shortness of breath. There is no complaint of fever or chills. Because of dark-colored stools, patient came to the ER. Initial lab work done in the ER showed WBC 12, hemoglobin 11.4, platelet count 324, sodium 134, potassium 4, BUN 18, creatinine 0.95, glucose 98, AST 20, ALT 18, troponin 0.012 Patient admitted to internal medicine service February 25: Patient seen this afternoon. Still having bloody stools. No abdominal pain. Feels a bit tired. Seen by GI team. Planning for EGD colonoscopy. Active Medications Acetaminophen (Acetaminophen Tab 325 Mg Tab) 650 mg PO Q6HR PRN PRN Reason: Mild Pain or Fever > 100.5 Sodium Chloride (Saline 0.9%) 1,000 mls @ 75 mls/hr IV .[id number] [facility] Last Admin: 02/26/24 02:33 Dose: 75 mls/hr Ferric Sodium Gluconate 125 mg (/ Sodium Chloride) 110 mls @ 100 mls/hr IVPB DAILY [facility] Melatonin (Melatonin 3 Mg Tablet) 3 mg PO HS PRN PRN Reason: Insomnia Naloxone HCl (Naloxone 0.4 Mg/Ml 1 Ml Vial) 0.2 mg IV Q2M PRN PRN Reason: Opioid Reversal Ondansetron HCl (Ondansetron 4 Mg/2 Ml Vial) 4 mg IVP Q8HR PRN PRN Reason: Nausea And Vomiting Pantoprazole Sodium (Pantoprazole 40 Mg/10 Ml Vial) 40 mg IVP BID [facility] Last Admin: 02/26/24 08:24 Dose: 40 mg On examination: VITAL SIGNS: [97.5, 81, 16, 138 x 68, 98% room air] GENERAL APPEARANCE: BMI 24.4, laying in bed awake tired HEENT: Normal external appearance of nose and ear. Oral cavity normal EYES: Pupils equal. Conjunctiva normal. NECK: JVD not raised. Mass not palpable. RESPIRATORY: Respiratory effort normal. Lungs clear to auscultation. CARDIOVASCULAR: First and second sounds normal. No edema. ABDOMEN: Soft. Liver and spleen not palpable. No tenderness. No mass palpable. PSYCHIATRY: Alert and oriented x3. Mood and affect normal. INVESTIGATIONS, reviewed in the clinical context: February 25: White count 6.9 hemoglobin 10.2 platelets 332 potassium 4.3 creatinine 0.9 Assessment plan: -Acute GI bleed. Some flushed blood. Could be diverticular colonic bleed.: Not improving Follow H&H. GI consulted. For EGD colonoscopy. -Acute blood loss anemia. Follow H&H -Essential hypertension Zestoretic -Hyperlipidemia Lipitor -Full code Care was discussed with the patient. Clear liquid diet. For endoscopy above and below. Discussed with patient A Past Medical History Past Medical History: Hyperlipidemia, Hypertension, Pneumonia Additional Past Medical History / Comment(s): right inguinal hernia History of Any Multi-Drug Resistant Organisms: None Reported Past Surgical History: Appendectomy Additional Past Surgical History / Comment(s): cervical fusion & disc surgery, deviated septum, cataracts Past Anesthesia/Blood Transfusion Reactions: No Reported Reaction Past Psychological History: No Psychological Hx Reported Smoking Status: Heavy tobacco smoker Past Alcohol Use History: Daily Past Drug Use History: None Reported
[2024-02-26 22:43] LABS: HCT 26.1 % (39.0-53.0); HGB 8.8 gm/dL (13.0-17.5); MCH 29.2 pg (25.0-35.0); MCHC 33.6 g/dL (31.0-37.0); MCV 86.9 fL (80.0-100.0); Mean Platelet Volume 7.1; Platelet Count 262 k/uL (150-450); RBC 3.01 m/uL (4.30-5.90); RDW 12.6 % (11.5-15.5); WBC 7.6 k/uL (3.8-10.6)
[2024-02-27] MEDS: SODIUM FERRIC GLUCONAT-SUCROSE 125 MG in SODIUM CHLORIDE 0.9% 100 ML IVPB SCH (09:29)
[2024-02-27 10:43] LABS: HCT 27.5 % (39.0-53.0); Hypochromasia Slight; MCH 28.8 pg (25.0-35.0); MCHC 32.8 g/dL (31.0-37.0); MCV 87.7 fL (80.0-100.0); Mean Platelet Volume 7.4; Platelet Count 306 k/uL (150-450); RBC 3.14 m/uL (4.30-5.90); RDW 12.6 % (11.5-15.5); WBC 6.5 k/uL (3.8-10.6)
[2024-02-27 10:46] LABS: HCT 26.9 % (39.6-50.0); HGB 8.1 g/dL (13.0-17.0); MCH 27.5 pg (27.0-32.0); MCHC 30.1 g/dL (32.0-37.0); MCV 91.2 FL (80.0-97.0); Mean Platelet Volume 10.8 FL (9.5-12.2); NRBC Per 100 WBC 0 X 10*3/uL (0.00-0.01); Platelet Count 283 X 10*3/uL (140-440); RBC 2.95 X 10*6/uL (4.40-5.60); RDW 12.6 % (11.5-14.5)
[2024-02-27] MEDS ORDERED: LIDOCAINE 1% INJ 10MG/ML (20 ML MDV) ONE (12:19)
[2024-02-27] MEDS ORDERED: PROPOFOL 10 MG/ML 20 ML VIAL IV ONE (12:19)
[2024-02-27] MEDS: IV FLUID CONTINUATION 1,000 ML IV ONE ×3 (12:21→12:49)
--- NOTE | 2024-02-27 12:46 | P.PCN ---
Date of Procedure: 02/27/24 Procedure(s) Performed: Brief history: Patient is a pleasant 73-year-old white male scheduled for an elective upper endoscopy as well as colonoscopy as a part of evaluation of black tarry stools for the last 3 to 4 days duration and iron deficiency anemia. Hemoglobin was 9 g/dL. Indices consistent with iron deficiency anemia. Procedure performed: Esophagogastroduodenoscopy with biopsy Colonoscopy Preoperative diagnosis: Black tarry stools Iron deficiency anemia Anesthesia: MAC Procedure: After informed consent was obtained from the patient was brought into the endoscopy unit and IV sedation was administered by anesthesia under continuous monitoring. Initially upper endoscopy was done. The Olympus GF 160 video endoscope was inserted inserted into the mouth and esophagus intubated without any difficulty and was gradually advanced into the stomach and duodenum and carefully examined. The bulb and second part of the duodenum appeared normal. Biopsies were done from the duodenum to evaluate for celiac disease. The scope was then withdrawn into the stomach adequately insufflated with air and upon careful examination the antrum and body, cardia and fundus appeared normal. The scope was then withdrawn into the esophagus. The GE junction was located at 36 cm to the incisors. It appeared regular with no erythema erosions or ulcerations. There is a hernia noted. Rest of the esophagus appeared normal. Patient tolerated the procedure well. At this time the patient continued to remain sedation. Initial digital rectal examination was normal. Olympus CF 160 video colonoscope was then inserted into the rectum and gradually advanced to the cecum without any difficulty. Careful examination was performed as the scope was gradually being withdrawn. The prep was excellent. The cecum, ascending colon, transverse colon appeared normal. Scattered right-sided diverticulosis seen. There was some old blood noted in the left colon. Moderate left-sided diverticulosis seen. Mucosa of the, descending colon, sigmoid colon and rectum appeared normal. No polyps noted. Retroflexion was performed in the rectum and no lesions were noted. Patient tolerated the procedure well. Impression: 1. Upper endoscopy revealed moderate size hiatal hernia but no evidence of esophagitis or peptic ulcer disease 2. Colonoscopy revealed old blood in the left colon with moderate sided diverticulosis but no evidence of colorectal neoplasia. Recommendations: Findings of this examination were discussed with the patient as well as his family. Recent GI bleed is most likely diverticular in nature. He will be started on clear liquid diet. He was advised to follow-up with the biopsy results. Monitor CBC daily.
--- NOTE | 2024-02-27 16:50 | P.PN ---
Progress Note - Text Progress Note Date: 02/27/24 History of present illness; patient is a 73-year-old gentleman with past medical his significant for hypertension, hyperlipidemia who presented to the ER because of dark stools. Patient stated he was all right yesterday afternoon when he started having dark-colored stools, there was no complaint of abdominal pain, no complaint of nausea or vomiting. Patient had multiple episodes of dark stools. There was no complaint of any hematemesis. Patient denies any history of using blood thinner but patient homeless does include taking regular Motrin. There was no complaint of any chest pain or shortness of breath. There is no complaint of fever or chills. Because of dark-colored stools, patient came to the ER. Initial lab work done in the ER showed WBC 12, hemoglobin 11.4, platelet count 324, sodium 134, potassium 4, BUN 18, creatinine 0.95, glucose 98, AST 20, ALT 18, troponin 0.012 Patient admitted to internal medicine service February 25: Patient seen this afternoon. Still having bloody stools. No abdominal pain. Feels a bit tired. Seen by GI team. Planning for EGD colonoscopy. February 26: Saw the patient this morning. Later underwent EGD colonoscopy. Former revealed hiatal hernia. Latter revealed diverticular disease with some old blood in the left colon. Bleed felt to be diverticular. With colon prep patient had noted no fresh blood over the night. Active Medications Acetaminophen (Acetaminophen Tab 325 Mg Tab) 650 mg PO Q6HR PRN PRN Reason: Mild Pain or Fever > 100.5 Sodium Chloride (Saline 0.9%) 1,000 mls @ 75 mls/hr IV .[id number] [facility] Last Admin: 02/27/24 13:30 Dose: 75 mls/hr Ferric Sodium Gluconate 125 mg (/ Sodium Chloride) 110 mls @ 100 mls/hr IVPB DAILY [facility] Last Admin: 02/27/24 09:29 Dose: 100 mls/hr Melatonin (Melatonin 3 Mg Tablet) 3 mg PO HS PRN PRN Reason: Insomnia Naloxone HCl (Naloxone 0.4 Mg/Ml 1 Ml Vial) 0.2 mg IV Q2M PRN PRN Reason: Opioid Reversal Ondansetron HCl (Ondansetron 4 Mg/2 Ml Vial) 4 mg IVP Q8HR PRN PRN Reason: Nausea And Vomiting Pantoprazole Sodium (Pantoprazole 40 Mg/10 Ml Vial) 40 mg IVP BID [facility] Last Admin: 02/27/24 08:57 Dose: 40 mg On examination: VITAL SIGNS: 97.4, 66, 16, 160/71, 96% room air GENERAL APPEARANCE: BMI 24.4, comfortable HEENT: Normal external appearance of nose and ear. Oral cavity normal EYES: Pupils equal. Conjunctiva normal. NECK: JVD not raised. Mass not palpable. RESPIRATORY: Respiratory effort normal. Lungs clear to auscultation. CARDIOVASCULAR: First and second sounds normal. No edema. ABDOMEN: Soft. Liver and spleen not palpable. No tenderness. No mass palpable. PSYCHIATRY: Alert and oriented x3. Mood and affect normal. INVESTIGATIONS, reviewed in the clinical context: February 26: Hemoglobin February 25: White count 6.9 hemoglobin 10.2 platelets 332 potassium 4.3 creatinine 0.9 Assessment plan: -Acute GI bleed. From left colon diverticulosis Colonoscopy: Shows left-sided colonic diverticular disease -Hiatal hernia -Acute blood loss anemia. Follow H&H -Essential hypertension Zestoretic -Hyperlipidemia Lipitor -Full code Received IV iron. Diet advanced per GI. Increase activity. DC PPI A Past Medical History Past Medical History: Hyperlipidemia, Hypertension, Pneumonia Additional Past Medical History / Comment(s): right inguinal hernia History of Any Multi-Drug Resistant Organisms: None Reported Past Surgical History: Appendectomy Additional Past Surgical History / Comment(s): cervical fusion & disc surgery, deviated septum, cataracts Past Anesthesia/Blood Transfusion Reactions: No Reported Reaction Past Psychological History: No Psychological Hx Reported Smoking Status: Heavy tobacco smoker Past Alcohol Use History: Daily Past Drug Use History: None Reported
[2024-02-28 08:22] LABS: HCT 23.2 % (39.6-50.0); HGB 7.1 g/dL (13.0-17.0); MCH 27.8 pg (27.0-32.0); MCHC 30.6 g/dL (32.0-37.0); Mean Platelet Volume 10.8 FL (9.5-12.2); NRBC Per 100 WBC 0 X 10*3/uL (0.00-0.01); Platelet Count 274 X 10*3/uL (140-440); RBC 2.55 X 10*6/uL (4.40-5.60); RDW 12.7 % (11.5-14.5); WBC 7.18 X 10*3/uL (4.50-10.00)
[2024-02-28 11:59] LABS: HCT 22.7 % (39.0-53.0); Hypochromasia Slight; MCH 29.1 pg (25.0-35.0); MCHC 32.8 g/dL (31.0-37.0); MCV 88.7 fL (80.0-100.0); Mean Platelet Volume 7.4; Platelet Count 286 k/uL (150-450); RBC 2.56 m/uL (4.30-5.90); RDW 13.1 % (11.5-15.5); WBC 7.4 k/uL (3.8-10.6)
[2024-02-28 12:06] LABS: HGB 7.4 gm/dL (13.0-17.5)
--- NOTE | 2024-02-28 15:37 | P.PN ---
Subjective Progress Note Date: 02/28/24 Principal diagnosis: GI bleed This is a pleasant 73-year-old male who presented to the emergency department yesterday with complaints of rectal bleeding. Patient states he started having bleeding from the rectum on Monday. States that he had up to 7 episodes of bleeding which she reports is all dark. He denies any abdominal pain associated with the bleeding. Denies any previous history of GI bleed. Reports the stool as black and sticky. Denies any history of upper GI bleed. States he did have an EGD many years ago. Believes he had a colonoscopy 4 to 5 years ago and states it was normal. He denies any anticoagulation and states he uses ibuprofen maybe 1 day a week. Admitting hemoglobin 11.4 with a repeat today of 9.5. He states he had 4 episodes of bloody bowel movements today. Again denies any abdominal pain, nausea or vomiting. 02/28/2024 Patient seen and examined today as a follow-up. Yesterday he underwent upper endoscopy and colonoscopy. Upper endoscopy revealed moderate size hiatal hernia but no evidence of esophagitis or peptic ulcer disease. Colonoscopy revealed old blood in the left colon with moderate sided diverticulosis but no evidence of colorectal neoplasia. GI bleed likely diverticular in nature. He remains on a full liquid diet. Denies any abdominal pain nausea or vomiting. Had 4 episodes of bright red blood through the night but none since 3 AM. Just had some spotting on his toilet paper that was bright red. None in the toilet. Did have a drop in his hemoglobin to 7.1 this morning with a repeat hemoglobin of 7.4 at noon. Objective - Vital Signs Vital signs: Vital Signs Temp 98.4 F 02/28/24 07:17 Pulse 69 02/28/24 08:40 Resp 18 02/28/24 08:40 BP 166/72 02/28/24 07:17 Pulse Ox 97 02/28/24 07:17 FiO2 Intake & Output 02/27/24 02/28/24 02/28/24 18:59 06:59 18:59 Intake Total 1240 825 Balance 1240 825 Intake: IV 300 Intake, IV Titration 825 Amount Sodium Chloride 0.9% 1, 825 000 ml @ 75 mls/hr IV . [id number] [facility] Rx#:[id number] Oral 940 Other: Voiding Method Toilet Toilet # Voids 1 # Bowel Movements 1 - Exam General appearance: The patient is alert, oriented, appears in no acute distress. HET: Head is normocephalic and atraumatic. Conjunctiva pink. Sclera anicteric. Neck: Supple without lymphadenopathy. Abdomen: Soft, nontender, nondistended. Extremities: Normal skin color and turgor. No pedal edema Skin: No rashes, no jaundice Neurological: No focal deficits. Alert and oriented. - Labs CBC & Chem 7: 02/28/24 11:28 02/26/24 05:39 Labs: Abnormal Lab Results - Last 24 Hours (Table) 02/26/24 02/27/24 02/27/24 Range/Units 05:39 06:33 10:24 RBC 2.95 L 3.14 L (4.40-5.60) X 10*6/uL Hgb 8.1 L 9.0 L (13.0-17.0) g/dL Hct 26.9 L 27.5 L (39.6-50.0) % MCHC 30.1 L (32.0-37.0) g/dL RBC Folate 863 H (280 - 791) ng/mL 02/28/24 Range/Units 05:00 RBC 2.55 L (4.40-5.60) X 10*6/uL Hgb 7.1 L (13.0-17.0) g/dL Hct 23.2 L (39.6-50.0) % MCHC 30.6 L (32.0-37.0) g/dL RBC Folate (280 - 791) ng/mL Assessment and Plan (1) GI bleed Narrative/Plan: 73-year-old male with no prior history of GI bleed presents with dark/black stools since Monday. No anticoagulation no regular NSAID use no history of peptic ulcer disease. Unclear etiology. Need to consider source of possible upper GI bleed however has not had colonoscopy in 4 to 5 years. He has a normocytic normochromic anemia. Will plan for further investigation with EGD and colonoscopy. Continue Protonix 40 mg twice daily. CBC every 6 hours, transfuse for hemoglobin less than 7. Patient status post upper endoscopy and colonoscopy with old blood in the left colon and moderate's diverticulosis, GI bleed likely diverticular in nature. Continue to monitor. Current Visit: Yes Status: Acute Code(s): K92.2 - GASTROINTESTINAL HEMORRHAGE, UNSPECIFIED SNOMED Code(s): 59833639 Plan: 1. Continue symptomatic and supportive care 2. CBC every 6 hours x 2, then in the morning 3. Transfuse for hemoglobin less than 7 4. Parental iron x 3 5. Patient is status post upper endoscopy and colonoscopy 6. Continue full liquid diet 7. Continue to monitor for lower GI bleed. Transfer to higher level of care if patient has further active bleeding Thank you for this consultation, we will continue to follow. Dr. Michael Villafuerte I agree with the dictator's note, documented as a scribe by Stephanie Weiner.
[2024-02-28 18:15] LABS: Basophils # (A) 0.1 k/uL (0-0.2); Basophils % (A) 1 %; Eosinophils # (A) 0.4 k/uL (0-0.7); Eosinophils % (A) 4 %; HGB 8.4 gm/dL (13.0-17.5); Hypochromasia Slight; Lymphocytes # (A) 2.9 k/uL (1.0-4.8); Lymphocytes % (A) 28 %; MCH 28.1 pg (25.0-35.0); MCHC 32.2 g/dL (31.0-37.0); MCV 87.5 fL (80.0-100.0); Mean Platelet Volume 7.5; Monocytes # (A) 0.5 k/uL (0-1.0); Monocytes % (A) 5 %; Neutrophils # (A) 6.1 k/uL (1.3-7.7); Neutrophils % (A) 61 %; Platelet Count 334 k/uL (150-450); RBC 2.97 m/uL (4.30-5.90); RDW 13.7 % (11.5-15.5); WBC 10.1 k/uL (3.8-10.6)
[2024-02-28 19:45] VITALS: RESP 16
--- NOTE | 2024-02-28 19:55 | P.PN ---
Progress Note - Text Progress Note Date: 02/28/24 History of present illness; patient is a 73-year-old gentleman with past medical his significant for hypertension, hyperlipidemia who presented to the ER because of dark stools. Patient stated he was all right yesterday afternoon when he started having dark-colored stools, there was no complaint of abdominal pain, no complaint of nausea or vomiting. Patient had multiple episodes of dark stools. There was no complaint of any hematemesis. Patient denies any history of using blood thinner but patient homeless does include taking regular Motrin. There was no complaint of any chest pain or shortness of breath. There is no complaint of fever or chills. Because of dark-colored stools, patient came to the ER. Initial lab work done in the ER showed WBC 12, hemoglobin 11.4, platelet count 324, sodium 134, potassium 4, BUN 18, creatinine 0.95, glucose 98, AST 20, ALT 18, troponin 0.012 Patient admitted to internal medicine service February 25: Patient seen this afternoon. Still having bloody stools. No abdominal pain. Feels a bit tired. Seen by GI team. Planning for EGD colonoscopy. February 26: Saw the patient this morning. Later underwent EGD colonoscopy. Former revealed hiatal hernia. Latter revealed diverticular disease with some old blood in the left colon. Bleed felt to be diverticular. With colon prep patient had noted no fresh blood over the night. February 27: Patient had more bleeding overnight. Hemoglobin this morning was 7.1. Repeat was 7.4. Later in the evening 8.4. The transfusion may held off. Remains on a full liquid diet. Active Medications Acetaminophen (Acetaminophen Tab 325 Mg Tab) 650 mg PO Q6HR PRN PRN Reason: Mild Pain or Fever > 100.5 Sodium Chloride (Saline 0.9%) 1,000 mls @ 75 mls/hr IV .[id number] [facility] Last Admin: 02/28/24 13:20 Dose: 75 mls/hr Ferric Sodium Gluconate 125 mg (/ Sodium Chloride) 110 mls @ 100 mls/hr IVPB DAILY [facility] Stop: 02/29/24 11:00 Last Admin: 02/28/24 08:46 Dose: 100 mls/hr Melatonin (Melatonin 3 Mg Tablet) 3 mg PO HS PRN PRN Reason: Insomnia Naloxone HCl (Naloxone 0.4 Mg/Ml 1 Ml Vial) 0.2 mg IV Q2M PRN PRN Reason: Opioid Reversal Ondansetron HCl (Ondansetron 4 Mg/2 Ml Vial) 4 mg IVP Q8HR PRN PRN Reason: Nausea And Vomiting On examination: VITAL SIGNS: 98.4, 78, 16, 158 x 58, 98% room air GENERAL APPEARANCE: BMI 24.4, comfortable HEENT: Normal external appearance of nose and ear. Oral cavity normal EYES: Pupils equal. Conjunctiva normal. NECK: JVD not raised. Mass not palpable. RESPIRATORY: Respiratory effort normal. Lungs clear to auscultation. CARDIOVASCULAR: First and second sounds normal. No edema. ABDOMEN: Soft. Liver and spleen not palpable. No tenderness. No mass palpable. PSYCHIATRY: Alert and oriented x3. Mood and affect normal. INVESTIGATIONS, reviewed in the clinical context: February 27: Hemoglobin 7.1. Repeat later today 8.4 February 7: Hemoglobin 9 February 6: White count 6.9 hemoglobin 10.2 platelets 332 potassium 4.3 creatinine 0.9 Assessment plan: -Acute GI bleed. From left colon diverticulosis Colonoscopy: Shows left-sided colonic diverticular disease -Hiatal hernia -Acute blood loss anemia. Follow H&H -Essential hypertension Zestoretic -Hyperlipidemia Lipitor -Full code Follow H&H closely. We at least need 24 hours of no significant bleeding, before patient can be discharged. Discussed with patient A Past Medical History Past Medical History: Hyperlipidemia, Hypertension, Pneumonia Additional Past Medical History / Comment(s): right inguinal hernia History of Any Multi-Drug Resistant Organisms: None Reported Past Surgical History: Appendectomy Additional Past Surgical History / Comment(s): cervical fusion & disc surgery, deviated septum, cataracts Past Anesthesia/Blood Transfusion Reactions: No Reported Reaction Past Psychological History: No Psychological Hx Reported Smoking Status: Heavy tobacco smoker Past Alcohol Use History: Daily Past Drug Use History: None Reported
[2024-02-29 04:05] LABS: Basophils # (A) 0.1 k/uL (0-0.2); Basophils % (A) 1 %; Eosinophils # (A) 0.3 k/uL (0-0.7); Eosinophils % (A) 4 %; HCT 23.2 % (39.0-53.0); HGB 7.6 gm/dL (13.0-17.5); Hypochromasia Slight; Lymphocytes # (A) 2.2 k/uL (1.0-4.8); Lymphocytes % (A) 29 %; MCH 28.9 pg (25.0-35.0); MCHC 32.9 g/dL (31.0-37.0); MCV 87.9 fL (80.0-100.0); Mean Platelet Volume 7.3; Monocytes # (A) 0.4 k/uL (0-1.0); Monocytes % (A) 5 %; Neutrophils # (A) 4.5 k/uL (1.3-7.7); Neutrophils % (A) 59 %; Platelet Count 316 k/uL (150-450); RBC 2.64 m/uL (4.30-5.90); RDW 13.5 % (11.5-15.5); WBC 7.6 k/uL (3.8-10.6)
[2024-02-29] MEDS: FERROUS SULFATE 325 MG TAB PO SCH (09:02)
[2024-02-29] MEDS: DOCUSATE 100 MG CAP PO SCH (09:02)
--- NOTE | 2024-02-29 10:59 | P.PN ---
Subjective Progress Note Date: 02/29/24 Principal diagnosis: GI bleed This is a pleasant 73-year-old male who presented to the emergency department yesterday with complaints of rectal bleeding. Patient states he started having bleeding from the rectum on Monday. States that he had up to 7 episodes of bleeding which she reports is all dark. He denies any abdominal pain associated with the bleeding. Denies any previous history of GI bleed. Reports the stool as black and sticky. Denies any history of upper GI bleed. States he did have an EGD many years ago. Believes he had a colonoscopy 4 to 5 years ago and states it was normal. He denies any anticoagulation and states he uses ibuprofen maybe 1 day a week. Admitting hemoglobin 11.4 with a repeat today of 9.5. He states he had 4 episodes of bloody bowel movements today. Again denies any abdominal pain, nausea or vomiting. 02/28/2024 Patient seen and examined today as a follow-up. Yesterday he underwent upper endoscopy and colonoscopy. Upper endoscopy revealed moderate size hiatal hernia but no evidence of esophagitis or peptic ulcer disease. Colonoscopy revealed old blood in the left colon with moderate sided diverticulosis but no evidence of colorectal neoplasia. GI bleed likely diverticular in nature. He remains on a full liquid diet. Denies any abdominal pain nausea or vomiting. Had 4 episodes of bright red blood through the night but none since 3 AM. Just had some spotting on his toilet paper that was bright red. None in the toilet. Did have a drop in his hemoglobin to 7.1 this morning with a repeat hemoglobin of 7.4 at noon. 02/29/2024 Patient seen and examined today as a follow-up. He is being followed for lower GI bleed. Likely diverticular in nature. He is status post colonoscopy. He had no further bleeding since early yesterday morning. No bowel movement today. He did have 1 unit of blood yesterday afternoon with repeat hemoglobin of 8.4. Today's hemoglobin is 7.6. He denies any abdominal pain, nausea or vomiting. He has been afebrile. He has been tolerating a full liquid diet. Objective - Vital Signs Vital signs: Vital Signs Temp 97.7 F 02/29/24 07:00 Pulse 62 02/29/24 07:00 Resp 16 02/29/24 07:00 BP 176/71 02/29/24 07:00 Pulse Ox 98 02/29/24 07:00 FiO2 Intake & Output 02/28/24 02/29/24 02/29/24 18:59 06:59 18:59 Other: Voiding Method Toilet Toilet # Voids 2 1 - Exam General appearance: The patient is alert, oriented, appears in no acute distress. HET: Head is normocephalic and atraumatic. Conjunctiva pink. Sclera anicteric. Neck: Supple without lymphadenopathy. Abdomen: Soft, nontender, nondistended. Extremities: Normal skin color and turgor. No pedal edema Skin: No rashes, no jaundice Neurological: No focal deficits. Alert and oriented. - Labs CBC & Chem 7: 02/29/24 03:40 02/26/24 05:39 Labs: Abnormal Lab Results - Last 24 Hours (Table) 02/28/24 02/28/24 02/28/24 Range/Units 11:28 11:28 17:52 RBC 2.56 L 2.97 L (4.30-5.90) m/uL Hgb 7.4 L D 8.4 L (13.0-17.5) gm/dL Hct 22.7 L 26.0 L (39.0-53.0) % Crossmatch See Detail 02/29/24 Range/Units 03:40 RBC 2.64 L (4.30-5.90) m/uL Hgb 7.6 L (13.0-17.5) gm/dL Hct 23.2 L (39.0-53.0) % Crossmatch Assessment and Plan (1) GI bleed Narrative/Plan: 73-year-old male with no prior history of GI bleed presents with dark/black stools since Monday. No anticoagulation no regular NSAID use no history of peptic ulcer disease. Unclear etiology. Need to consider source of possible upper GI bleed however has not had colonoscopy in 4 to 5 years. He has a normocytic normochromic anemia. Will plan for further investigation with EGD and colonoscopy. Continue Protonix 40 mg twice daily. CBC every 6 hours, transfuse for hemoglobin less than 7. Patient status post upper endoscopy and colonoscopy with old blood in the left colon and moderate's diverticulosis, GI bleed likely diverticular in nature. Continue to monitor. Current Visit: Yes Status: Acute Code(s): K92.2 - GASTROINTESTINAL HEMORRHAGE, UNSPECIFIED SNOMED Code(s): 10353519 (2) Iron deficiency anemia Narrative/Plan: Secondary to acute blood loss. Parenteral iron given x 2 doses. Patient's IV came out and he declined reinsertion. Will treat with oral iron. Current Visit: Yes Status: Acute Code(s): D50.9 - IRON DEFICIENCY ANEMIA, UNSPECIFIED SNOMED Code(s): 06473114 Plan: 1. Continue symptomatic and supportive care 2. Start oral iron twice daily, with Colace 3. Patient is status post upper endoscopy and colonoscopy 4. Advance to soft low-fat diet. Discussed with patient to continue soft diet for the next 2 to 3 days. Thank you for this consultation, patient is cleared from gastroenterology for discharge. Dr. Michael Villafuerte I agree with the dictator's note, documented as a scribe by Stephanie Weiner.
[2024-02-29 12:12] VITALS: BP 138/72; PULSE 76; TEMP 98
--- NOTE | 2024-02-29 17:44 | P.DS ---
Providers Date of admission: 02/25/24 11:48 Expected date of discharge: 02/29/24 Attending physician: Sina Wiseman Consults: 02/25/24 11:47 Consult Physician Urgent Consulting Provider: Alla Villafuerte Consult Reason/Comments: GI bleed Do you want consulting provider notified?: Yes Primary care physician: [facility] Course: History of present illness; patient is a 73-year-old gentleman with past medical his significant for hypertension, hyperlipidemia who presented to the ER because of dark stools. Patient stated he was all right yesterday afternoon when he s tarted having dark-colored stools, there was no complaint of abdominal pain, no complaint of nausea or vomiting. Patient had multiple episodes of dark stools. There was no complaint of any hematemesis. Patient denies any history of using blood thinner but patient homeless does include taking regular Motrin. There was no complaint of any chest pain or shortness of breath. There is no complaint of fever or chills. Because of dark-colored stools, patient came to the ER. Initial lab work done in the ER showed WBC 12, hemoglobin 11.4, platelet count 324, sodium 134, potassium 4, BUN 18, creatinine 0.95, glucose 98, AST 20, ALT 18, troponin 0.012 Patient admitted to internal medicine service February 25: Patient seen this afternoon. Still having bloody stools. No abdominal pain. Feels a bit tired. Seen by GI team. Planning for EGD colonoscopy. February 26: Saw the patient this morning. Later underwent EGD colonoscopy. Former revealed hiatal hernia. Latter revealed diverticular disease with some old blood in the left colon. Bleed felt to be diverticular. With colon prep patient had noted no fresh blood over the night. February 27: Patient had more bleeding overnight. Hemoglobin this morning was 7.1. Repeat was 7.4. Later in the evening 8.4. The transfusion may held off. Remains on a full liquid diet. February 28: No further bleeding. Hemoglobin stable. Feeling well. at the bedside. Discussed at length about diverticular bleed. Questions answered. Patient did tolerate a soft large. Told to keep on a soft diet for at least 3 to 4 days. Repeat CBC on Monday. Discussion and discharge planning more than 35 minutes On examination: VITAL SIGNS: 98, 76, 16, 138 x 72, 99% room air GENERAL APPEARANCE: BMI 24.4, wearing up, comfortable HEENT: Normal external appearance of nose and ear. Oral cavity normal EYES: Pupils equal. Conjunctiva normal. NECK: JVD not raised. Mass not palpable. RESPIRATORY: Respiratory effort normal. Lungs clear to auscultation. CARDIOVASCULAR: First and second sounds normal. No edema. ABDOMEN: Soft. Liver and spleen not palpable. No tenderness. No mass palpable. PSYCHIATRY: Alert and oriented x3. Mood and affect normal. INVESTIGATIONS, reviewed in the clinical context: February 28: Hemoglobin 7.6 February 27: Hemoglobin 7.1. Repeat later today 8.4 February 26: Hemoglobin 9 February 25: White count 6.9 hemoglobin 10.2 platelets 332 potassium 4.3 creatinine 0.9 Assessment plan: -Acute GI bleed. From left colon diverticulosis: Stabilized Dr. Michael Villafuerte: Colonoscopy: Shows left-sided colonic diverticular disease -Hiatal hernia, on EGD -Acute blood loss anemia. Iron supplement. -Essential hypertension Zestoretic -Hyperlipidemia Lipitor -Full code Disposition: Home A Past Medical History Past Medical History: Hyperlipidemia, Hypertension, Pneumonia Additional Past Medical History / Comment(s): right inguinal hernia History of Any Multi-Drug Resistant Organisms: None Reported Past Surgical History: Appendectomy Additional Past Surgical History / Comment(s): cervical fusion & disc surgery, deviated septum, cataracts Past Anesthesia/Blood Transfusion Reactions: No Reported Reaction Past Psychological History: No Psychological Hx Reported Smoking Status: Heavy tobacco smoker Past Alcohol Use History: Daily Past Drug Use History: None Reported Plan - Discharge Summary Discharge Rx Participant: No New Discharge Prescriptions: New Ferrous Sulfate [Iron (65 MG Elemental)] 325 mg PO BID-W/MEALS #60 tab Continue Lisinopril-Hctz 20-12.5 mg [Zestoretic 20-12.5] 1 tab PO DAILY Atorvastatin [Lipitor] 20 mg PO DAILY Discharge Medication List Atorvastatin [Lipitor] 20 mg PO DAILY 02/25/24 [History] Lisinopril-Hctz 20-12.5 mg [Zestoretic 20-12.5] 1 tab PO DAILY 02/25/24 [History] Ferrous Sulfate [Iron (65 MG Elemental)] 325 mg PO BID-W/MEALS #60 tab 02/29/24 [Rx] Follow up Appointment(s)/Referral(s): Kenney Garcia MD [Primary Care Provider] - 1-2 days (Please call the office to schedule a follow up appointment-Message was left on the maintenance scheduler's answering machine) Patient Instructions/Handouts: Iron Supplements (By mouth), Rectal Bleeding (DC), Diverticulosis (DC) Activity/Diet/Wound Care/Special Instructions: Maintain soft diet for next 2 to 3 days. Monitor for rectal bleeding, return to hospital if further rectal bleeding. See prescription to have blood drawn on Monday03/04/24 Discharge/Stand Alone Forms: Work/School Release Discharge Disposition: HOME SELF-CARE
== END 2024-02-29 16:20 | disposition home or self-care (01) | DRG 811 ==
LOC: EC 08:50 → 5NMEDONC 11:48
PROVIDERS: ADMIT Hospitalist; ATTEND Hospitalist
PROC: 0DB98ZX Excision of Duodenum, Via Natural or Artificial Opening Endoscopic, Diagnostic (ICD-10-PCS; principal; 2024-02-27 11:10)
PROC: 0DJD8ZZ Inspection of Lower Intestinal Tract, Via Natural or Artificial Opening Endoscopic (ICD-10-PCS; 2024-02-27 11:10)
PROC: 30233N1 Transfusion of Nonautologous Red Blood Cells into Peripheral Vein, Percutaneous Approach (ICD-10-PCS; 2024-02-28)
DX: D62 Acute posthemorrhagic anemia (principal); K57.31 Diverticulosis of large intestine without perforation or abscess with bleeding; Z59.00 Homelessness unspecified; I10 Essential (primary) hypertension; E78.5 Hyperlipidemia, unspecified; K44.9 Diaphragmatic hernia without obstruction or gangrene; F17.200 Nicotine dependence, unspecified, uncomplicated; Z88.5 Allergy status to narcotic agent
CPT/HCPCS: 36415; 43239; 45378; 80053; 82607; 82728; 82747; 83540; 83550; 84484; 85025; 85027; 85610; 85730; 86850; 86900; 86901; 86920; 88305; 96361; 96372; 96374; 99285